=== PATIENT | male | born 1975 | race Caucasian/White ===

== ENCOUNTER 2018-11-03 18:20 | Emergency (ER) | payer BC ==
[2018-11-03] MEDS ORDERED: cloNIDine TAB* 0.1 MG PO ONE (19:13)
[2018-11-03] MEDS ORDERED: Hydrochlorothiazide TAB* 25 MG PO ONE (19:13)
--- NOTE | 2018-11-03 19:14 | ED ---
Hypertension - HPI Summary HPI Summary: 43-year-old male presents with a blood pressure for the past couple days. He started feeling tired and started checking his blood pressure. Pressure has been in the 170s occasionally. Denies any history of high blood pressure. He does have follow-up with her primary next week for the first time. Denies any shortness of breath. He notes occasional chest pressure but has not had it since last night. Admits occasional dizziness. He is not actively dizzy. No headache. No change in vision. No nausea vomiting or diarrhea. no abdominal pain. Denies any other symptoms. Has no medical conditions. Does have family history of high blood pressure. - History of Current Complaint Chief Complaint: EDChestPainROMI Stated Complaint: LIGHT HEADED/CHEST TIGHTNESS PER PT Time Seen by Provider: 11/03/18 19:05 - Allergies/Home Medications Allergies/Adverse Reactions: Allergies Allergy/AdvReac Type Severity Reaction Status Date / Time No Known Allergies Allergy Verified 11/03/18 18:32 PMH/Surg Hx/FS Hx/Imm Hx Endocrine/Hematology History: Denies: Hx Anticoagulant Therapy, Hx Diabetes Cardiovascular History: Denies: Hx Myocardial Infarction Infectious Disease History: No Infectious Disease History: Denies: Traveled Outside the [place] in Last 30 Days - Family History Known Family History: Positive: Hypertension Review of Systems Negative: Fever Positive: Chest Pain Negative: Shortness Of Breath Negative: Abdominal Pain Neurological: Other - dizziness All Other Systems Reviewed And Are Negative: Yes Physical Exam Triage Information Reviewed: Yes Vital Signs On Initial Exam: Initial Vitals Temp Pulse Resp BP Pulse Ox 98.4 F 78 16 179/119 99 11/03/18 18:29 11/03/18 18:29 11/03/18 18:29 11/03/18 18:29 11/03/18 18:29 Vital Signs Reviewed: Yes Appearance: Positive: Well-Appearing Skin: Positive: Warm, Dry Head/Face: Positive: Normal Head/Face Inspection Eyes: Positive: Normal, Conjunctiva Clear ENT: Positive: Pharynx normal Respiratory/Lung Sounds: Positive: Clear to Auscultation, Breath Sounds Present Cardiovascular: Positive: Normal, RRR Abdomen Description: Positive: Nontender, Soft Bowel Sounds: Positive: Present Diagnostics - Vital Signs Vital Signs Temp Pulse Resp BP Pulse Ox 11/03/18 18:29 98.4 F 78 16 179/119 99 - Laboratory Result Diagrams: 11/03/18 19:26 11/03/18 19:26 Lab Statement: Any lab studies that have been ordered have been reviewed, and results considered in the medical decision making process. - Radiology chest Radiology Interpretation Completed By: ED Physician Summary of Radiographic Findings: no active disease - EKG No standard instances Cardiac Rate: NL EKG Rhythm: Sinus Rhythm Summary of EKG Findings: sinus rhythm Re-Evaluation - Re-Evaluation First Eval Re-Evaluation Time: 20:43 Change: Unchanged Comment: no symptoms still Hypertension Course/Dx - Course Course Of Treatment: 43-year-old male presents with a blood pressure for the past couple days. He started feeling tired and started checking his blood pressure. Pressure has been in the 170s occasionally. Denies any history of high blood pressure. He does have follow-up with her primary next week for the first time. Denies any shortness of breath. He notes occasional chest pressure but has not had it since last night. Admits occasional dizziness. He is not actively dizzy. No headache. No change in vision. No nausea vomiting or diarrhea. no abdominal pain. Denies any other symptoms. Has no medical conditions. Does have family history of high blood pressure. On exam lungs clear. Heart regular rate and rhythm. EKG shows sinus rhythm. Chest x-ray normal. Blood cell slightly elevated at 11. Was going to give dose clonidine as BP was 170 but the patient's blood pressure came down to 150. We'll treat with hydrochlorothiazide. kidney function normal. troponin zero. TSH normal. will send script for hydrochlorothiazie. will have keep bp log. told follow up with primary. patient understand and agrees with plan. - Diagnoses Differential Diagnosis/HQI PQRI: Hypertension, Hypertensive Urgency, Myocardial Infarction Provider Diagnoses: Hypertension Discharge - Sign-Out/Discharge Documenting (check all that apply): Patient Departure Patient Received Moderate/Deep Sedation with Procedure: No - Discharge Plan Condition: Good Disposition: HOME Prescriptions: Hydrochlorothiazide TAB* [Hydrodiuril TAB*] 25 mg PO DAILY #14 tab Patient Education Materials: DASH Eating Plan (ED), Hypertension (ED) Referrals: Charlotte Velasquez NP [Primary Care Provider] - Additional Instructions: Follow up with primary Limit salt intake exercise manage stress take hydrochlorothiazide once a day keep a blood pressure log Return to ED if develop chest pain or any new or worsening symptosm - Billing Disposition and Condition Condition: GOOD Disposition: Home
[2018-11-03 19:45] LABS: ABS Basophils 0.1 10^3/ul (0-0.2); ABS Eosinophils 0.1 10^3/ul (0-0.6); ABS Monocytes 0.9 10^3/ul (0-0.8); ABS Neutrophils 8.1 10^3/ul (1.5-7.7); ABS Nucleated RBC 0 10^3/ul; Eosinophil % 0.9 %; Hematocrit 46 % (36-46); Hemoglobin 16.1 g/dL (14.0-18.0); Lymphocyte % 18.3 %; Mean Corpuscular HGB Conc 35 g/dL (31-36); Mean Corpuscular Hemoglobin 30 pg (27-31); Mean Corpuscular Volume 87 fL (80-94); Mean Platelet Volume 8.3 fL (7.4-10.4); Nucleated Red Blood Cells % 0.3; Platelet Count 192 10^3/uL (150-450); Red Blood Count 5.35 10^6 /uL (4.18-5.48); Red Cell Distribution Width 13 % (10.5-15); White Blood Count 11.2 10^3/uL (3.5-10.8)
[2018-11-03 20:02] LABS: Albumin 4.7 g/dL (3.2-5.2); Albumin/Globulin Ratio 1.7 (1-3); Calcium 9.4 mg/dL (8.6-10.3); EGFR Non-African American 90.1 (>60); Globulin 2.8 g/dL (2-4); Potassium 3.4 mmol/L (3.5-5.0); Total Bilirubin 0.6 mg/dL (0.2-1.0); Total Protein 7.5 g/dL (6.4-8.9)
[2018-11-03 20:35] LABS: TSH (Thyroid Stimulating Horm) 1.34 mcIU/mL (0.34-5.60)
[2018-11-03 20:54] VITALS: BP 135/92
== END 2018-11-03 20:53 | disposition home or self-care (01) ==
LOC: ED 18:20
DX: I10 Essential (primary) hypertension (principal); R94.31 Abnormal electrocardiogram [ECG] [EKG]
CPT/HCPCS: 36415; 71045; 80053; 83605; 83880; 84443; 84484; 85025; 93005; 99282; A9270-GY

== ENCOUNTER 2024-08-19 17:25 | Inpatient (IN) ==
[2024-08-19 17:46] LABS: ABS Basophils 0.1 10^3/uL (0.0-0.1); ABS Eosinophils 0.2 10^3/uL (0.0-0.5); ABS Monocytes 0.7 10^3/uL (0.0-1.1); ABS Neutrophils 5.1 10^3/uL (1.5-7.6); ABS Nucleated RBC 0.01 10^3/ul; Eosinophil % 2.4 %; Hematocrit 42.2 % (38-53); Hemoglobin 14.4 g/dL (13.2-16.3); Lymphocyte % 24.9 %; Mean Corpuscular Hemoglobin 29.9 pg (27-33); Mean Corpuscular Hgb Conc 34.1 g/dL (31-36); Mean Corpuscular Volume 87.7 fL (80-97); Mean Platelet Volume 8.8 fL (7.5-11.2); Nucleated Red Blood Cells % 0.1 %/100WBC (0.0-0.8); Platelet Count 163 10^3/uL (150-450); Red Blood Count 4.81 10^6/uL (4.06-5.63); Red Cell Distribution Width 13.2 % (12-17); White Blood Count 8.1 10^3/uL (3.6-10.2)
[2024-08-19] MEDS: Iodixanol 320 (CONTRAST) 100 ML SDV IV ONE (17:48)
[2024-08-19 17:58] LABS: INR 1.06 (0.85-1.14)
[2024-08-19 18:06] LABS: Albumin 4.3 g/dL (3.5-5.7); Albumin/Globulin Ratio 1.8 (1-3); Calcium 9.1 mg/dL (8.6-10.3); Creatinine, Serum 1.31 mg/dL (0.67-1.17); Direct Bilirubin 0.1 mg/dL (0.03-0.18); Globulin 2.4 g/dL (2-4); HDL Cholesterol 31.5 mg/dL; Indirect Bilirubin 0.4 mg/dL (0.3-1.0); Potassium 4.1 mmol/L (3.5-5.0); Total Bilirubin 0.5 mg/dL (0.2-1.0); Total Protein 6.7 g/dL (6.4-8.9); eGFR CKD-EPI 66.3 (>60)
[2024-08-19] MEDS: TENECTEPLASE 50 MG VIAL KIT 5 MG/ML (reconstituted) IV ONE (18:28)
[2024-08-19] MEDS: Lactated Ringers 1000 ml BAG 1,000 ML IV ONE (19:15)
[2024-08-19] MEDS: Ondansetron 4 mg VIAL 2 MG/ML 2 ml VIAL IV PRN (21:56)
[2024-08-19] MEDS: Ondansetron 4 mg VIAL 2 MG/ML 2 ml VIAL ONE (22:20)
[2024-08-20 05:00] LABS: ABS Basophils 0.1 10^3/uL (0.0-0.1); ABS Monocytes 0.6 10^3/uL (0.0-1.1); ABS Neutrophils 8.4 10^3/uL (1.5-7.6); ABS Nucleated RBC 0.01 10^3/ul; Eosinophil % 0.2 %; Hematocrit 38.1 % (38-53); Hemoglobin 13.2 g/dL (13.2-16.3); Lymphocyte % 10.2 %; Mean Corpuscular Hemoglobin 30.2 pg (27-33); Mean Corpuscular Hgb Conc 34.6 g/dL (31-36); Mean Corpuscular Volume 87.2 fL (80-97); Mean Platelet Volume 8.6 fL (7.5-11.2); Nucleated Red Blood Cells % 0.1 %/100WBC (0.0-0.8); Platelet Count 162 10^3/uL (150-450); Red Blood Count 4.37 10^6/uL (4.06-5.63); Red Cell Distribution Width 12.7 % (12-17); White Blood Count 10.1 10^3/uL (3.6-10.2)
[2024-08-20 05:04] LABS: Urine Appearance Clear; Urine Bilirubin Negative (Negative); Urine Blood Negative (Negative); Urine Color Yellow; Urine Glucose Negative (Negative); Urine Ketones Negative (Negative); Urine Nitrite Negative (Negative); Urine Protein Trace (Negative); Urine Specific Gravity 1.042 (1.002-1.030); Urine Urobilinogen Negative (Negative)
[2024-08-20 05:26] LABS: Calcium 8.4 mg/dL (8.6-10.3); Creatinine, Serum 1.13 mg/dL (0.67-1.17); Magnesium 1.5 mg/dL (1.9-2.7); Phosphorus 3.7 mg/dL (2.5-5.0); eGFR CKD-EPI 79.2 (>60)
[2024-08-20] MEDS ORDERED: Dextrose 50% Syringe 50 ml 25 GM/50 ML SYRINGE IV PUSH PRN (07:18)
[2024-08-20] MEDS: Sulfur Hexaflouride MICROSPHR 25 MG VIAL IV PRN (08:44)
[2024-08-20] MEDS: Magnesium Sulfate 2 gm BAG 2 GM/50 ML BAG IVPB ONE (09:22)
[2024-08-20] MEDS: Aspirin EC 81 mg TAB.EC (enteric coated) PO SCH (10:07)
[2024-08-20] MEDS ORDERED: Heparin DRIP 25,000 UNITS BAG 25,000 UNITS/250 ML BAG IV SCH (15:30)
[2024-08-20] MEDS ORDERED: Heparin 5000 UNITS/ML 1 mL VIAL IV SCH (16:00)
[2024-08-20 16:06] LABS: ABS Basophils 0.1 10^3/uL (0.0-0.1); ABS Lymphocytes 1.4 10^3/uL (1.0-4.8); ABS Monocytes 0.9 10^3/uL (0.0-1.1); ABS Neutrophils 9.3 10^3/uL (1.5-7.6); ABS Nucleated RBC 0.01 10^3/ul; Eosinophil % 0.1 %; Hematocrit 38.9 % (38-53); Hemoglobin 13.3 g/dL (13.2-16.3); Lymphocyte % 11.8 %; Mean Corpuscular Hemoglobin 29.7 pg (27-33); Mean Corpuscular Hgb Conc 34.3 g/dL (31-36); Mean Corpuscular Volume 86.8 fL (80-97); Mean Platelet Volume 8.4 fL (7.5-11.2); Nucleated Red Blood Cells % 0.1 %/100WBC (0.0-0.8); Platelet Count 160 10^3/uL (150-450); Red Blood Count 4.48 10^6/uL (4.06-5.63); Red Cell Distribution Width 12.9 % (12-17); White Blood Count 11.6 10^3/uL (3.6-10.2)
[2024-08-20 16:49] LABS: TSH Ultra Thyroid Stim Horm 0.65 mcIU/mL (0.34-5.60)
[2024-08-20 16:50] LABS: Free T4 1.13 ng/dL (0.61-1.12)
[2024-08-20 16:53] LABS: Ferritin 53.9 ng/mL (24-336)
[2024-08-20 16:57] LABS: Creatinine, Serum 1.12 mg/dL (0.67-1.17)
[2024-08-20 17:20] LABS: Free T3 3.31 pg/mL (2.5-3.9)
[2024-08-20] MEDS ORDERED: Warfarin per PHARMACY **NOTE FOLLOW UP SCH (18:30)
[2024-08-20] MEDS: Heparin DRIP 25,000 UNITS BAG 25,000 UNITS/250 ML BAG IV SCH (19:28)
[2024-08-20] MEDS: Warfarin DAILY REMINDER **NOTE FOLLOW UP SCH (19:39)
[2024-08-20] MEDS: Lidocaine PATCH 5% PATCH TRANSDERM SCH (22:10)
[2024-08-21] MEDS: Heparin 5000 UNITS/ML 1 mL VIAL IV SCH (02:14)
[2024-08-21 04:47] LABS: ABS Lymphocytes 1.6 10^3/uL (1.0-4.8); ABS Monocytes 1.1 10^3/uL (0.0-1.1); ABS Neutrophils 8.3 10^3/uL (1.5-7.6); Eosinophil % 0.2 %; Hematocrit 37.9 % (38-53); Hemoglobin 13.3 g/dL (13.2-16.3); Lymphocyte % 14.7 %; Mean Corpuscular Hemoglobin 30.4 pg (27-33); Mean Corpuscular Volume 86.8 fL (80-97); Mean Platelet Volume 8.4 fL (7.5-11.2); Platelet Count 141 10^3/uL (150-450); Red Blood Count 4.37 10^6/uL (4.06-5.63); Red Cell Distribution Width 12.7 % (12-17)
[2024-08-21 05:03] LABS: INR 1.22 (0.85-1.14)
[2024-08-21 05:45] LABS: Calcium 8.2 mg/dL (8.6-10.3); Creatinine, Serum 1.01 mg/dL (0.67-1.17); Magnesium 1.7 mg/dL (1.9-2.7); Phosphorus 3.4 mg/dL (2.5-5.0); eGFR CKD-EPI 90.6 (>60)
[2024-08-21] MEDS: Magnesium Sulf 4 GM/100 ML IV 4,000 MG/100 ML BAG IVPB ONE (07:14)
[2024-08-22 06:00] LABS: ABS Basophils 0.1 10^3/uL (0.0-0.1); ABS Lymphocytes 1.6 10^3/uL (1.0-4.8); ABS Monocytes 0.9 10^3/uL (0.0-1.1); ABS Neutrophils 6.6 10^3/uL (1.5-7.6); ABS Nucleated RBC 0.01 10^3/ul; Eosinophil % 0.4 %; Hematocrit 39.2 % (38-53); Hemoglobin 13.9 g/dL (13.2-16.3); Lymphocyte % 17.3 %; Mean Corpuscular Hgb Conc 35.4 g/dL (31-36); Mean Corpuscular Volume 87.4 fL (80-97); Mean Platelet Volume 8.7 fL (7.5-11.2); Nucleated Red Blood Cells % 0.1 %/100WBC (0.0-0.8); Platelet Count 132 10^3/uL (150-450); Red Blood Count 4.48 10^6/uL (4.06-5.63); Red Cell Distribution Width 12.7 % (12-17); White Blood Count 9.2 10^3/uL (3.6-10.2)
[2024-08-22 06:11] LABS: Activated Partial Thrombo Time 46.4 seconds (26.0-38.0); INR 1.16 (0.85-1.14)
[2024-08-22 06:38] LABS: Calcium 8.3 mg/dL (8.6-10.3); Creatinine, Serum 0.97 mg/dL (0.67-1.17); Phosphorus 3.7 mg/dL (2.5-5.0); Potassium 4.1 mmol/L (3.5-5.0); eGFR CKD-EPI 95.1 (>60)
[2024-08-23 08:50] LABS: ABS Basophils 0.1 10^3/uL (0.0-0.1); ABS Eosinophils 0.1 10^3/uL (0.0-0.5); ABS Lymphocytes 1.6 10^3/uL (1.0-4.8); ABS Monocytes 0.8 10^3/uL (0.0-1.1); ABS Neutrophils 6.2 10^3/uL (1.5-7.6); ABS Nucleated RBC 0.01 10^3/ul; Eosinophil % 0.6 %; Hematocrit 41.7 % (38-53); Hemoglobin 14.6 g/dL (13.2-16.3); Mean Corpuscular Hemoglobin 30.4 pg (27-33); Mean Corpuscular Hgb Conc 34.9 g/dL (31-36); Mean Platelet Volume 8.9 fL (7.5-11.2); Nucleated Red Blood Cells % 0.2 %/100WBC (0.0-0.8); Platelet Count 146 10^3/uL (150-450); White Blood Count 8.8 10^3/uL (3.6-10.2)
[2024-08-23 08:56] LABS: INR 1.21 (0.85-1.14)
[2024-08-23 10:06] LABS: Calcium 8.4 mg/dL (8.6-10.3); Creatinine, Serum 0.97 mg/dL (0.67-1.17); Potassium 3.9 mmol/L (3.5-5.0); eGFR CKD-EPI 95.1 (>60)
[2024-08-24 06:05] LABS: ABS Basophils 0.1 10^3/uL (0.0-0.1); ABS Eosinophils 0.1 10^3/uL (0.0-0.5); ABS Lymphocytes 1.7 10^3/uL (1.0-4.8); ABS Monocytes 0.9 10^3/uL (0.0-1.1); ABS Neutrophils 6.1 10^3/uL (1.5-7.6); ABS Nucleated RBC 0.01 10^3/ul; Eosinophil % 0.8 %; Hematocrit 42.3 % (38-53); Hemoglobin 14.9 g/dL (13.2-16.3); Lymphocyte % 19.3 %; Mean Corpuscular Hemoglobin 30.2 pg (27-33); Mean Corpuscular Hgb Conc 35.3 g/dL (31-36); Mean Corpuscular Volume 85.7 fL (80-97); Mean Platelet Volume 9.2 fL (7.5-11.2); Nucleated Red Blood Cells % 0.1 %/100WBC (0.0-0.8); Platelet Count 158 10^3/uL (150-450); Red Blood Count 4.94 10^6/uL (4.06-5.63); Red Cell Distribution Width 12.7 % (12-17); White Blood Count 8.9 10^3/uL (3.6-10.2)
[2024-08-24 06:24] LABS: Activated Partial Thrombo Time 55.7 seconds (26.0-38.0); INR 1.26 (0.85-1.14)
[2024-08-24 06:53] LABS: Calcium 8.6 mg/dL (8.6-10.3); Creatinine, Serum 0.88 mg/dL (0.67-1.17); Magnesium 1.9 mg/dL (1.9-2.7); Potassium 3.6 mmol/L (3.5-5.0); eGFR CKD-EPI 104.8 (>60)
[2024-08-25 06:20] LABS: ABS Basophils 0.1 10^3/uL (0.0-0.1); ABS Eosinophils 0.1 10^3/uL (0.0-0.5); ABS Lymphocytes 1.7 10^3/uL (1.0-4.8); ABS Monocytes 0.9 10^3/uL (0.0-1.1); ABS Neutrophils 5.3 10^3/uL (1.5-7.6); ABS Nucleated RBC 0.01 10^3/ul; Eosinophil % 1.5 %; Hematocrit 43.3 % (38-53); Hemoglobin 15.2 g/dL (13.2-16.3); Lymphocyte % 20.6 %; Mean Corpuscular Hemoglobin 30.3 pg (27-33); Mean Corpuscular Hgb Conc 35.1 g/dL (31-36); Mean Corpuscular Volume 86.4 fL (80-97); Nucleated Red Blood Cells % 0.1 %/100WBC (0.0-0.8); Platelet Count 174 10^3/uL (150-450); Red Blood Count 5.01 10^6/uL (4.06-5.63); White Blood Count 8.2 10^3/uL (3.6-10.2)
[2024-08-25 06:35] LABS: Activated Partial Thrombo Time 67.5 seconds (26.0-38.0); INR 1.38 (0.85-1.14)
[2024-08-25 06:41] LABS: Calcium 8.4 mg/dL (8.6-10.3); Creatinine, Serum 0.91 mg/dL (0.67-1.17); Potassium 3.5 mmol/L (3.5-5.0); eGFR CKD-EPI 102.7 (>60)
[2024-08-26 06:13] LABS: ABS Basophils 0.1 10^3/uL (0.0-0.1); ABS Eosinophils 0.1 10^3/uL (0.0-0.5); ABS Lymphocytes 1.9 10^3/uL (1.0-4.8); ABS Monocytes 0.9 10^3/uL (0.0-1.1); ABS Neutrophils 6.3 10^3/uL (1.5-7.6); ABS Nucleated RBC 0.01 10^3/ul; Eosinophil % 1.2 %; Hematocrit 43.7 % (38-53); Hemoglobin 15.4 g/dL (13.2-16.3); Lymphocyte % 20.2 %; Mean Corpuscular Hemoglobin 30.5 pg (27-33); Mean Corpuscular Hgb Conc 35.3 g/dL (31-36); Mean Corpuscular Volume 86.4 fL (80-97); Nucleated Red Blood Cells % 0.1 %/100WBC (0.0-0.8); Platelet Count 175 10^3/uL (150-450); Red Blood Count 5.05 10^6/uL (4.06-5.63); White Blood Count 9.3 10^3/uL (3.6-10.2)
[2024-08-26 06:27] LABS: Activated Partial Thrombo Time 83.1 seconds (26.0-38.0); INR 1.54 (0.85-1.14)
[2024-08-26 07:08] LABS: Calcium 8.6 mg/dL (8.6-10.3); Creatinine, Serum 0.95 mg/dL (0.67-1.17); Potassium 3.4 mmol/L (3.5-5.0); eGFR CKD-EPI 97.5 (>60)
[2024-08-26] MEDS: KCL 20 MEQ/100 ML IVPREMIX 20 MEQ/100 ML BAG IV SCH (10:25)
[2024-08-26] MEDS: Potassium Chlor 20 meq TAB.ER PO ONE (12:41)
[2024-08-27 05:38] LABS: ABS Basophils 0.1 10^3/uL (0.0-0.1); ABS Eosinophils 0.2 10^3/uL (0.0-0.5); ABS Lymphocytes 2.2 10^3/uL (1.0-4.8); ABS Monocytes 0.8 10^3/uL (0.0-1.1); ABS Neutrophils 5.8 10^3/uL (1.5-7.6); ABS Nucleated RBC 0.01 10^3/ul; Eosinophil % 1.8 %; Hematocrit 43.7 % (38-53); Hemoglobin 15.5 g/dL (13.2-16.3); Lymphocyte % 23.9 %; Mean Corpuscular Hemoglobin 30.8 pg (27-33); Mean Corpuscular Hgb Conc 35.4 g/dL (31-36); Mean Corpuscular Volume 86.9 fL (80-97); Mean Platelet Volume 8.6 fL (7.5-11.2); Nucleated Red Blood Cells % 0.1 %/100WBC (0.0-0.8); Platelet Count 179 10^3/uL (150-450); Red Blood Count 5.02 10^6/uL (4.06-5.63); Red Cell Distribution Width 12.8 % (12-17)
[2024-08-27 06:06] LABS: INR 1.88 (0.85-1.14)
[2024-08-27 06:39] LABS: Calcium 8.3 mg/dL (8.6-10.3); Creatinine, Serum 1.03 mg/dL (0.67-1.17); Magnesium 1.9 mg/dL (1.9-2.7); Potassium 3.5 mmol/L (3.5-5.0); eGFR CKD-EPI 88.5 (>60)
[2024-08-27] MEDS: Potassium Chloride LIQUID 20 MEQ/15 ML LIQUID PO ONE (12:46)
[2024-08-28 06:00] LABS: INR 2.3 (0.85-1.14)
[2024-08-29 08:16] LABS: INR 2.6 (0.85-1.14)
[2024-08-30 06:45] LABS: INR 2.21 (0.85-1.14)
[2024-08-30 14:01] VITALS: BP 105/72
== END 2024-08-30 14:47 | DRG 45 ==
LOC: ED 17:25 → SUATTDRO 18:32 → EDHOLD 18:32 → ICU 19:47 → MEDTELE 08-21 16:51
PROVIDERS: ADMIT Internal Medicine; ATTEND Internal Medicine

== ENCOUNTER 2024-08-30 13:59 | Inpatient (IN) ==
[2024-08-30] MEDS ORDERED: Senna TAB 8.6 mg TAB PO PRN (16:14)
[2024-08-30] MEDS ORDERED: Dextrose 50% Syringe 50 ml 25 GM/50 ML SYRINGE IV PUSH PRN (16:36)
[2024-08-31 06:39] LABS: INR 1.86 (0.85-1.14)
[2024-09-01 06:27] LABS: ABS Basophils 0.1 10^3/uL (0.0-0.1); ABS Eosinophils 0.2 10^3/uL (0.0-0.5); ABS Lymphocytes 2.3 10^3/uL (1.0-4.8); ABS Monocytes 0.9 10^3/uL (0.0-1.1); ABS Neutrophils 6.1 10^3/uL (1.5-7.6); ABS Nucleated RBC 0.01 10^3/ul; Eosinophil % 2.5 %; Hematocrit 45.1 % (38-53); Hemoglobin 15.9 g/dL (13.2-16.3); Lymphocyte % 24.2 %; Mean Corpuscular Hemoglobin 30.9 pg (27-33); Mean Corpuscular Hgb Conc 35.3 g/dL (31-36); Mean Corpuscular Volume 87.6 fL (80-97); Mean Platelet Volume 8.3 fL (7.5-11.2); Nucleated Red Blood Cells % 0.1 %/100WBC (0.0-0.8); Platelet Count 210 10^3/uL (150-450); Red Blood Count 5.15 10^6/uL (4.06-5.63); Red Cell Distribution Width 13.4 % (12-17); White Blood Count 9.7 10^3/uL (3.6-10.2)
[2024-09-01 06:30] LABS: INR 1.81 (0.85-1.14)
[2024-09-01 07:02] LABS: Albumin 3.9 g/dL (3.5-5.7); Albumin/Globulin Ratio 1.4 (1-3); Calcium 9.1 mg/dL (8.6-10.3); Creatinine, Serum 0.96 mg/dL (0.67-1.17); Globulin 2.7 g/dL (2-4); Potassium 4.5 mmol/L (3.5-5.0); Total Bilirubin 0.7 mg/dL (0.2-1.0); Total Protein 6.6 g/dL (6.4-8.9); eGFR CKD-EPI 96.3 (>60)
[2024-09-01] MEDS: Enoxaparin 40 MG/0.4 ML SYR SUBCUT SCH (12:31)
[2024-09-02 06:38] LABS: INR 2.12 (0.85-1.14)
[2024-09-02] MEDS: Enoxaparin 40 MG/0.4 ML SYR SUBCUT SCH (08:45)
[2024-09-02] MEDS: Lidocaine PATCH 5% PATCH TRANSDERM SCH (19:48)
[2024-09-03 07:04] LABS: INR 1.9 (0.85-1.14)
[2024-09-04 06:12] LABS: INR 2.13 (0.85-1.14)
[2024-09-05 06:16] LABS: INR 2.36 (0.85-1.14)
[2024-09-06 05:41] LABS: INR 2.65 (0.85-1.14)
[2024-09-08 06:30] LABS: ABS Basophils 0.1 10^3/uL (0.0-0.1); ABS Eosinophils 0.1 10^3/uL (0.0-0.5); ABS Lymphocytes 1.8 10^3/uL (1.0-4.8); ABS Monocytes 0.6 10^3/uL (0.0-1.1); ABS Neutrophils 3.7 10^3/uL (1.5-7.6); ABS Nucleated RBC 0.01 10^3/ul; Eosinophil % 1.6 %; Hematocrit 43.7 % (38-53); Hemoglobin 15.3 g/dL (13.2-16.3); Lymphocyte % 28.2 %; Mean Corpuscular Hemoglobin 30.9 pg (27-33); Mean Corpuscular Volume 88.2 fL (80-97); Mean Platelet Volume 8.5 fL (7.5-11.2); Nucleated Red Blood Cells % 0.1 %/100WBC (0.0-0.8); Platelet Count 143 10^3/uL (150-450); Red Blood Count 4.96 10^6/uL (4.06-5.63); Red Cell Distribution Width 13.2 % (12-17); White Blood Count 6.3 10^3/uL (3.6-10.2)
[2024-09-08 06:34] LABS: INR 2.79 (0.85-1.14)
[2024-09-08 06:55] LABS: Albumin/Globulin Ratio 1.6 (1-3); Calcium 9.3 mg/dL (8.6-10.3); Creatinine, Serum 1.15 mg/dL (0.67-1.17); Globulin 2.5 g/dL (2-4); Potassium 4.3 mmol/L (3.5-5.0); Total Bilirubin 0.6 mg/dL (0.2-1.0); Total Protein 6.5 g/dL (6.4-8.9); eGFR CKD-EPI 77.5 (>60)
[2024-09-10 07:35] LABS: INR 3.33 (0.85-1.14)
[2024-09-11] MEDS: Warfarin DAILY REMINDER **NOTE FOLLOW UP SCH (17:35)
[2024-09-13 06:47] LABS: ABS Basophils 0.1 10^3/uL (0.0-0.1); ABS Eosinophils 0.1 10^3/uL (0.0-0.5); ABS Lymphocytes 1.9 10^3/uL (1.0-4.8); ABS Monocytes 0.4 10^3/uL (0.0-1.1); ABS Neutrophils 3.6 10^3/uL (1.5-7.6); ABS Nucleated RBC 0.01 10^3/ul; Eosinophil % 1.9 %; Hematocrit 43.1 % (38-53); INR 3.78 (0.85-1.14); Lymphocyte % 31.5 %; Mean Corpuscular Hemoglobin 30.5 pg (27-33); Mean Corpuscular Hgb Conc 34.8 g/dL (31-36); Mean Corpuscular Volume 87.8 fL (80-97); Mean Platelet Volume 8.8 fL (7.5-11.2); Nucleated Red Blood Cells % 0.1 %/100WBC (0.0-0.8); Platelet Count 115 10^3/uL (150-450); Red Blood Count 4.91 10^6/uL (4.06-5.63); Red Cell Distribution Width 13.5 % (12-17); White Blood Count 6.1 10^3/uL (3.6-10.2)
[2024-09-14 06:09] LABS: INR 2.91 (0.85-1.14)
[2024-09-15 07:01] LABS: ABS Eosinophils 0.1 10^3/uL (0.0-0.5); ABS Lymphocytes 1.8 10^3/uL (1.0-4.8); ABS Monocytes 0.5 10^3/uL (0.0-1.1); ABS Neutrophils 2.9 10^3/uL (1.5-7.6); ABS Nucleated RBC 0.01 10^3/ul; Eosinophil % 2.4 %; Hematocrit 42.4 % (38-53); Hemoglobin 14.8 g/dL (13.2-16.3); Lymphocyte % 33.5 %; Mean Corpuscular Hemoglobin 30.7 pg (27-33); Mean Corpuscular Volume 87.8 fL (80-97); Mean Platelet Volume 8.9 fL (7.5-11.2); Nucleated Red Blood Cells % 0.1 %/100WBC (0.0-0.8); Platelet Count 109 10^3/uL (150-450); Red Blood Count 4.83 10^6/uL (4.06-5.63); Red Cell Distribution Width 13.5 % (12-17); White Blood Count 5.4 10^3/uL (3.6-10.2)
[2024-09-15 07:02] LABS: INR 2.48 (0.85-1.14)
[2024-09-15 08:25] LABS: Albumin 3.8 g/dL (3.5-5.7); Albumin/Globulin Ratio 1.6 (1-3); Creatinine, Serum 1.11 mg/dL (0.67-1.17); Globulin 2.4 g/dL (2-4); Potassium 4.1 mmol/L (3.5-5.0); Total Bilirubin 0.6 mg/dL (0.2-1.0); Total Protein 6.2 g/dL (6.4-8.9); eGFR CKD-EPI 80.9 (>60)
[2024-09-17 07:17] LABS: INR 2.8 (0.85-1.14)
[2024-09-17 07:23] LABS: Hematocrit 42.5 % (38-53); Mean Corpuscular Hemoglobin 30.9 pg (27-33); Mean Corpuscular Hgb Conc 35.2 g/dL (31-36); Mean Corpuscular Volume 87.9 fL (80-97); Red Blood Count 4.84 10^6/uL (4.06-5.63); Red Cell Distribution Width 13.2 % (12-17); White Blood Count 5.1 10^3/uL (3.6-10.2)
[2024-09-17 07:46] LABS: ABS Eosinophils 0.1 10^3/uL (0.0-0.5); ABS Lymphocytes 1.6 10^3/uL (1.0-4.8); ABS Monocytes 0.5 10^3/uL (0.0-1.1); ABS Neutrophils 2.8 10^3/uL (1.5-7.6); ABS Nucleated RBC 0.01 10^3/ul; Eosinophil % 2.8 %; Mean Platelet Volume 8.7 fL (7.5-11.2); Nucleated Red Blood Cells % 0.2 %/100WBC (0.0-0.8); Platelet Count 97 10^3/uL (150-450)
[2024-09-17 16:51] VITALS: BP 112/79
== END 2024-09-17 19:20 | disposition short-term general hospital (02) | DRG 45 ==
LOC: PMRU 14:47
PROVIDERS: ADMIT Physical Medicine & Rehabilitation; ATTEND Physical Medicine & Rehabilitation